=== PATIENT | female | born 1975 | race Caucasian/White ===

== ENCOUNTER 2020-05-11 01:11 | Outpatient (CLI) | payer OTHER, SELFPAY ==
[2020-05-11 18:13] LABS: SARS-CoV-2 RNA PCR Negative
== END 2020-05-11 01:12 | disposition home or self-care (01) ==
LOC: ANHCOVIDDT 01:11
PROVIDERS: Visit Provider Surgery Plastic and Reconstructive Surgery
DX: Z01.812 Encounter for preprocedural laboratory examination (principal); Z11.59 Encounter for screening for other viral diseases
CPT/HCPCS: 87635; C9803; U0003

== ENCOUNTER 2020-05-14 00:28 | Day surgery (SDC) | payer OTHER, SELFPAY ==
[2020-04-29 13:51] VITALS: BMI 36.3
[2020-05-14] VITALS (9 sets, daily range): BP systolic 111–139; BP diastolic 57–84; PULSE 56–71; RESP 12–16; TEMP 36.4–36.6; O2SAT 92–100
--- NOTE | 2020-05-14 06:48 | WPDHPUPDATE1 ---
History and Physical Update Update Date/Time: 05/14/20 06:48 History and Physical has been reviewed, including an updated exam of the patient. There are NO changes in the patient's condition. Risks, benefits, and alternatives have been discussed and questions answered. Patient agrees to proceed with procedure.
[2020-05-14 07:15] LABS: Urine Cotinine NEGATIVE
--- NOTE | 2020-05-14 07:31 | WPDANESEPPF ---
Anes - Initial Pre Proc Eval Procedure: Operation Date: 05/14/20 08:30 Proposed Procedures p Bilateral Reduction Mammoplasty - Hardeep Jain MD Date/Time: 05/14/20 07:31 Surgeon: Hardeep Jain MD Pre Op Diagnosis: Macromastia Patient Data Age: 44 Gender: F Height: 5 ft 3 in Weight: 92.99 kg Allergies Allergy/AdvReac Type Severity Reaction Status Date / Time adhesive tape Allergy blisters Verified 04/29/20 13:52 levofloxacin [From Levaquin] Allergy rash Verified 04/29/20 13:52 Home Medications Medication Instructions Recorded Confirmed Type dexlansoprazole 60 mg 60 mg PO DAILY 01/24/20 04/29/20 History capsule,biphase delayed release folic acid 1 mg tablet 1 mg PO DAILY 01/24/20 04/29/20 History levothyroxine 137 mcg capsule 137 mcg PO DAILY 01/24/20 04/29/20 History liraglutide (weight loss) 3 mg/0.5 0.6 mg SUB-Q DAILY 01/24/20 04/29/20 History mL (18 mg/3 mL) subcut pen injector nebivolol 10 mg tablet 10 mg PO DAILY 01/24/20 04/29/20 History cetirizine [Allergy Relief 10 mg PO DAILY 04/29/20 04/29/20 History (cetirizine)] cyanocobalamin (vitamin B-12) 1,000 mcg IM MONTHLY 04/29/20 04/29/20 History docusate sodium 100 mg capsule 100 mg PO BID #14 cap 04/29/20 04/29/20 Rx fluticasone propionate [Flonase 1 spray INTRANASAL DAILY 04/29/20 04/29/20 History Allergy Relief] hydrocodone 5 mg-acetaminophen 325 1 tablet PO Q6H PRN #15 tablet 04/29/20 04/29/20 Rx mg tablet ondansetron HCl 4 mg tablet 4 mg PO Q6H PRN #30 tablet 04/29/20 04/29/20 Rx spironolacton-hydrochlorothiaz 1 tablet PO DAILY 04/29/20 04/29/20 History Laboratory Tests 05/14/20 06:59 Cotinine Negative Patient hx anesthesia problems: other (slow to awaken) Family hx anesthesia problems: none PMFSH Past Medical History Medical History Anxiety Hx of migraines Hypertension Hypothyroidism YULISA (obstructive sleep apnea) Surgical History Surgical History History of History of cholecystectomy History of hernia repair Social History Social History Smoking status: Never smoker Alcohol intake: current Drinks per week: 1 Spiritual care concerns: No Anes - Eval Final PreProcedure Day of Procedure 05/14/20 07:31 Patient weight: obese Heart: regular rate and rhythm Lungs: clear to auscultation Airway: Mallampati scale class II Neurological: alert and oriented Last oral intake: >/= 8 hours ASA classification: III Emergent: no Anesthetic plan: proceed Anesthesia type and monitoring: general LMA and standard monitoring Informed Consent: The patient's anesthetic plan and its attendant risks and benefits were discussed with the patient/family/POA. Questions were solicited and answers provided to the satisfaction of the patient/family/POA.
[2020-05-14] MEDS: LACTATED RINGERS 1,000 ML 30 ML IV CONT ×2 (07:50→10:42)
[2020-05-14] MEDS: ceFAZolin 2 GM/D5W 50 ML 2 GM/50 ML BAG IVPB (08:35)
--- NOTE | 2020-05-14 08:50 | SUR.PREOP ---
0700-PT STATES CANNOT USE ANY TYPE OF TAPE OR TEGADERM AND CANNOT HAVE USAGE ON IV SITE, STATES MUST HAVE COBAND ON IV SITE.
--- NOTE | 2020-05-14 10:59 | PM.PROC ---
Procedure Note - Detailed Date of procedure: 05/14/20 Pre-op diagnosis: Macromastia Post-op diagnosis: same Procedure performed: Bilateral breast reduction Description of procedure: She is here today for bilateral breast reduction. Previously and again today the risks, benefits, alternatives were discussed in extensive detail. I wanted her to be very realistic about the risks involved as well as expectations. We discussed aftercare and what to monitor for. She understands we can never guarantee final breast size and there will always be asymmetry. I was very upfront and honest about the risks of sensation change and even nipple loss (). Made sure answered all of her questions to her satisfaction today and consent was obtained. She was marked in the preoperative holding area with their verification. The patient was taken to the operating room placed supine on the operating table. Anesthesia was provided by anesthesiology. She was prepped and draped in a standard sterile fashion. A surgical time-out was taken. Stab incisions were made and I tumessed with a tumescent solution. I marked out the nipple-areolar complex at 42 mm. I then de-epithelialized the pedicle. The pedicle was well left well more than 2 cm in thickness. I then removed the inferior portion of the breast as well as the central keel to get shape based on preoperative planning. At this point copiously irrigated with saline solution and verified a strict hemostasis. I reapproximated the pillars using a 2-0 PDS as well as along the IMF. I tailor tacked the breast into place with bruce. She was placed in a sitting position. I verified the nipple-areolar complex position based on preoperative markings, intraoperative measurements, and observation which were in full agreement. This nipple-areolar complex was marked at 42 mm in size. I then placed supine and de-epithelialized this. Nipple-areolar complex was inset with 3-0 Monocryl. I closed the vertical incision with 3-0 Monocryl in the IMF with 3-0 stratafix. Then everything was closed using a running subcuticular 4-0 Monocryl followed by Steri-Strips. A dressing was placed followed by surgical bra. Patient was awoke and taken to PACU without difficulty. All instrument sponge counts were correct at the end of the case. Anesthesia: GLMA Surgeon: Hardeep Jain MD Estimated blood loss (mL): 30 Drains: No Packing: No Pathology: yes Complications: No immediate complications Condition: stable Disposition: PACU Findings: Superior pedicle. Inverted T Right breast tissue: 330 grams Left breast tissue: 320grams
== END 2020-05-14 12:37 | disposition home or self-care (01) ==
PROVIDERS: Visit Provider Surgery Plastic and Reconstructive Surgery
PROC: 0HBV0ZZ Excision of Bilateral Breast, Open Approach (ICD-10-PCS; CPT 19318; principal; 2020-05-14 08:30)
DX: N62 Hypertrophy of breast (principal); I10 Essential (primary) hypertension; E03.9 Hypothyroidism, unspecified; G47.33 Obstructive sleep apnea (adult) (pediatric); F41.9 Anxiety disorder, unspecified; E66.9 Obesity, unspecified; Z68.36 Body mass index [BMI] 36.0-36.9, adult; Z79.51 Long term (current) use of inhaled steroids; Z79.899 Other long term (current) drug therapy
CPT/HCPCS: 19318; 80307; 88305; A9270; J0171; J0690; J1100; J2250; J2405; J2704; J3010; J7120